=== PATIENT | male | born 1945 | race Caucasian/White ===

== ENCOUNTER → 2017-08-11 | Outpatient (CLI) | payer MEDICARE, OTHER ==
[~2017-08-11] MED LIST: AMLODIPINE BESY10 MG PO; BENAZEPRIL HCL20 MG PO; DAILY VALUE1 EACH PO; GLUCOPHAGE1000 MG PO
== END | disposition home or self-care (01) ==
LOC: CDC 10:30
DX: Z01.810 Encounter for preprocedural cardiovascular examination (principal); M72.0 Palmar fascial fibromatosis [Dupuytren]; M79.641 Pain in right hand; R94.31 Abnormal electrocardiogram [ECG] [EKG]
CPT/HCPCS: 93000